=== PATIENT | female | born 1990 | race Caucasian/White ===

== ENCOUNTER → 2019-11-08 | Outpatient (CLI) | payer OTHER | LOC: M LABSMTC 14:21 | PROVIDERS: ATTEND Family Medicine | DX: Z11.59 Encounter for screening for other viral diseases (principal) | CPT/HCPCS: C9803; U0003 ==

== ENCOUNTER → 2021-07-05 | Outpatient (CLI) | payer OTHER | LOC: M PLAIMG 12:49 | PROVIDERS: ATTEND Internal Medicine | DX: Z13.858 Encounter for screening for other nervous system disorders (principal); Z82.49 Family history of ischemic heart disease and other diseases of the circulatory system ==

== ENCOUNTER 2021-08-02 10:48 | Emergency (ER) | payer OTHER ==
[~2021-08-02] VITALS: Ht 154.9 cm; Wt 83.0 kg
[2021-08-02 10:48] VITALS: BP 133/86
[2021-08-02] MEDS ORDERED: CLAR10CA3 PO (10:57)
[2021-08-02] MEDS ORDERED: AMOX875T2 PO (13:28)
[2021-08-02] MEDS ORDERED: OXYMETAZOLINE 0.05% NASAL SPRAY (AFRIN) ONE (13:30)
== END 2021-08-02 13:41 | disposition home or self-care (01) ==
LOC: M ED 10:48
DX: S02.2XXA Fracture of nasal bones, initial encounter for closed fracture (principal); S03.41XA Sprain of jaw, right side, initial encounter; W55.82XA Struck by other mammals, initial encounter; Y92.099 Unspecified place in other non-institutional residence as the place of occurrence of the external cause; Y93.9 Activity, unspecified; Y99.9 Unspecified external cause status; J30.2 Other seasonal allergic rhinitis; Z91.010 Allergy to peanuts

== ENCOUNTER → 2023-08-09 | Outpatient (REF) | payer OTHER ==
[~2023-08-09] MED LIST: AMOX875T2 PO; CLAR10CA3 PO
[2023-08-09 18:48] LABS: PERCENT SATURATION 35.4 % (13.2-45.0)
[2023-08-09 18:51] LABS: FERRITIN 31.8 NG/ML (7.3-270.7)
== END ==
LOC: M LAB REF 17:40
PROVIDERS: ATTEND Internal Medicine
DX: D50.9 Iron deficiency anemia, unspecified (principal)

== ENCOUNTER → 2024-08-30 | Outpatient (REF) | payer OTHER ==
[2024-08-30 12:34] LABS: INR 0.94; PARTIAL THROMBOPLASTIN TIME 30.2 SECONDS (24.8-34.2); PROTHROMBIN TIME 12.8 SECONDS (12.5-14.5)
[2024-08-30 12:55] LABS: PERCENT SATURATION 29.1 % (13.2-45.0)
[2024-08-30 12:58] LABS: FERRITIN 125.5 NG/ML (7.3-270.7)
== END ==
LOC: M LAB REF 12:11
PROVIDERS: ATTEND Internal Medicine
DX: R23.3 Spontaneous ecchymoses (principal); Z82.49 Family history of ischemic heart disease and other diseases of the circulatory system